=== PATIENT | male | born 1985 | race Caucasian/White ===

== ENCOUNTER 2019-03-09 23:38 | Inpatient (IN) ==
[2019-03-09] MEDS ORDERED: LORazepam 1 MG/2 ML VIAL IV STA (23:57)
[2019-03-09] MEDS ORDERED: SODIUM CHLORIDE 0.9% 1000ML 1,000 ML IV ONE (23:57)
[2019-03-10 00:19] LABS: Basophils # (auto) 0.05 K/uL (0-0.2); Basophils % (auto) 0.7 %; Eosinophils # (auto) 0.28 K/uL (0-0.5); Eosinophils % (auto) 3.7 %; Hematocrit (blood only) 48.1 % (42-52); Hemoglobin 17.5 g/dL (14.0-18.0); Immature Granulocytes # (auto) 0.01 K/uL (0.00-0.02); Immature Granulocytes % (auto) 0.1 %; Lymphocytes # (auto) 1.46 K/uL (1.2-3.4); Lymphocytes % (auto) 19.3 %; Mean Corpuscular Hemoglobin 32.8 pg (25-34); Mean Corpuscular Hgb Conc 36.4 g/dL (32-36); Mean Corpuscular Volume 90.2 fL (80-100); Mean Platelet Volume 9.3 fL (7.4-10.4); Monocytes # (auto) 0.58 K/uL (0.11-0.59); Monocytes % (auto) 7.7 %; Neutrophils % (auto) 68.5 %; Platelet Count 243 K/uL (130-400); RDW Coefficient of Variation 12.1 % (11.5-14.5); RDW Standard Deviation 40.1 fL (36.4-46.3); Red Blood Count 5.33 M/uL (4.7-6.1); White Blood Count 7.58 K/uL (4.8-10.8)
[2019-03-10 00:32] LABS: Appearance Urine Clear (Clear); Bacteria Urine Automated Negative (Negative); Blood Urine Negative (Negative); Color Urine Dark Yellow; Glucose Urine UA Negative (Negative); Ketones Urine 1+ (Negative); Leukocyte Esterase Urine Negative (Negative); Nitrite Urine Negative (Negative); Protein Urine Trace (Negative); RBC Urine Automated 0-4 /hpf (0-4); Specific Gravity Urine 1.033 (1.000-1.030); Urobilinogen Urine Negative (Negative)
[2019-03-10 00:37] LABS: Bilirubin Urine Negative (Negative); Ictotest Urine Negative (Negative)
[2019-03-10 00:41] LABS: Albumin Level 4.3 gm/dl (3.4-5.0); BUN Creatinine Ratio 14.8 (10-20); Calcium 9.4 mg/dl (8.5-10.1); Creatinine Clr Calc Pharmacy 73.7 ml/min; Est GFR (African American) 76.9; Est GFR (Non-African American) 66.3; Potassium 3.2 mmol/L (3.5-5.1)
[2019-03-10 00:47] LABS: Calcium Oxalate Crystals Urine Present (None Prsent)
[2019-03-10 00:51] LABS: Acetaminophen < 2 ug/ml (10-30); Salicylate < 1.7 mg/dl (2.8-20)
[2019-03-10 00:52] LABS: Albumin Globulin Ratio 1.1 (0.9-2); Bilirubin,Total 1.1 mg/dl (0.2-1); Globulin 3.8 gm/dl (2.5-4.0); Thyroid Stimulating Hormone 0.998 uIu/ml (0.300-4.500); Total Protein 8.1 gm/dl (6.4-8.2)
[2019-03-10 01:01] LABS: Amphetamines+Metham, Urine Pos (Neg); Barbiturates, Urine Neg (Neg); Benzodiazepine, Urine Neg (Neg); Cocaine, Urine Neg (Neg); MDMA (Ecstacy), Urine Pos (Neg); Methadone, Urine Neg (Neg); Opiate, Urine Neg (Neg); Phencyclidine, Urine Neg (Neg)
--- NOTE | 2019-03-10 03:29 | Emergency Department Note ---
Entered by Erma Chatman acting as a scribe for ED Provider Note Name: Nathaniel Perkins Age: 33 M Arrives Via: Personal transport from friend Informant: CC: detox request HPI: 33 year old male arrives for a detoxication request for his use of meth for the past two weeks. The patient states that he has been using meth for the past 8 days straight and has only been able to sleep for four hours during this time- span. The patient states reports that he normally smokes meth but has injected it once. The patient confirms that today he drank some beers and smoked marijuana. The patient denies shortness of breath, chest pain, leg swelling, neck pain or recent falls. The patient confirms that he lives with his grandmother and she is aware of his drug use. The patient confirms that he was here a couple of weeks ago for depression and states that this is the cause of his current drug use. The patient denies that anyone is trying to hurt him or that he wants to hurt himself. ROS: See above HPI for pertinent positives & negatives. A total of 10 systems reviewed and were otherwise negative. Past Medical History: Hypoxia, narcotic overdose, opiate withdrawal, tachycardia, unresponsive as well as others that are listed below Past Surgical History: Appendectomy Family History: Depression and anxiety Social History: Smokes cigarettes and chews tobacco Home Medications: Epinephrine Allergies Bee venom protein and Fish containing products Physical: Vitals: BP 144/93, P 112, R 20, O2 97% on RA , Temp 36.3 Exam: GENERAL: Patient is mildly agitated appears to be under the influence of meth. Mildly dehydrated. Anxious. Frequently checking phone me. EYES: No scleral icterus, unremarkable pupils. ENT: Mucous membranes moist, no nasal congestion. NECK: No masses appreciated, no meningismus, trachea is midline. RESPIRATORY: No dyspnea. Clear to auscultation and equal bilaterally. No wheeze, no rhonchi. CARDIOVASCULAR: Tachycardic rate and rhythm. No murmurs, rubs, gallops appreciated. GASTROINTESTINAL: Abdomen soft, non-tender, no peritonitis. Bowel sounds positive. No masses appreciated. BACK: No midline tenderness, no CVA tenderness EXTREMITIES: Normal motion all extremities, no cyanosis, no edema. NEUROLOGIC: Alert and oriented, no acute motor or sensory deficits, no focal weakness, cranial nerves grossly intact. PSYCH: Admits depression and denies suicidal ideation. Admits to meth use. SKIN: No rash, no jaundice, no diaphoresis. ED Course: Prior Medical Record, Triage/Nursing Notes, Medications, Allergies reviewed by Me Vital Signs: reviewed and remarkable for tachy, HTN Labs: Reviewed and remarkable for +meth in UA Interventions: saline lock, nss bolus, ativan 1 mg IV Blood pressure: Elevated - Zebulon to be Situation. Course: 0001: Past medical records reviewed. The patient was evaluated in room A10. A complete history and physical exam was performed. 0059: I reassessed the patient who is feeling more calm. Multiple rechecks throughout night. Mental health evaluated him and note patient admits suicidal ideation and plans. Disposition: Signed out to Dr Floyd pending placement on 201 basis Differentials: mood disorder, infection, hypoglycemia, electrolyte abnormalities, cardiac sources, intracerebral event, toxicologic, neurologic, as well as others were entertained. Medical Decision Makin yr old male with history of depression, previous suicide attempt and recent meth use arrived requesting rehab. After calming down and fluids patient met with case management as medically clear. At this time he is admitting suicidal ideation and worsening depression. He is willing admission on 201 voluntary basis. Signed out to Dr Floyd pending placement. Impression: Depression with suicidal ideation Methamphetamine Abuse The scribe's documentation has been prepared under my direction and personally reviewed by me in its entirety. I confirm that the note above accurately reflects all work, treatment, procedures, and medical decision making performed by me. Ross Torres MD Impression & Plan Depression with suicidal ideation, Methamphetamine abuse Past Med/Surg History Medical History Abdominal pain (Acute) Agitation (Acute) Aspiration pneumonia (Acute) Folliculitis (Acute 03/29/14) Hypoxia (Acute 03/29/14) Narcotic overdose (Acute) Nausea (Acute) Opiate withdrawal (Acute) Opioid withdrawal (Acute 01/26/13) Tachycardia (Acute) Unresponsive (Acute 03/29/14) Family History Other No pertinent family history in first degree relatives Social History Preferred Language: Greek Communication Ability: Effective Cook Night Required: No Beliefs That Will Affect Care: None Feels Safe at Home: Yes Smoking Status: Current every day smoker Tobacco Type: cigarettes ; Results & Data Vital Signs Vital Signs - 24 hr 03/09/19 23:44 03/10/19 01:53 Temperature 36.3 C L Temperature Source Oral Pulse Rate 112 H Pulse Rate [Apical] 95 H Respiratory Rate 20 18 Blood Pressure 144/93 H Blood Pressure [Left Arm] 137/88 Blood Pressure Mean 110 Blood Pressure Mean [Left Arm] 104 Blood Pressure Position Sitting Pulse Oximetry 97 97 Oxygen Delivery Method Room Air Room Air Sepsis Recent Fever Within 48 Hours No Sepsis New/Unexplained Change in Mental Status No Sepsis Action Taken by Nursing No Action Required Laboratory Data Result diagrams: 03/10/19 00:05 03/10/19 00:05 Lab Results 03/10/19 03/10/19 03/10/19 Range/Units 00:05 00:05 00:05 WBC 7.58 (4.8-10.8) K/uL RBC 5.33 (4.7-6.1) M/uL Hgb 17.5 (14.0-18.0) g/dL Hct 48.1 (42-52) % MCV 90.2 (80-100) fL MCH 32.8 (25-34) pg MCHC 36.4 H (32-36) g/dL RDW Std Deviation 40.1 (36.4-46.3) fL RDW Coeff of Gita 12.1 (11.5-14.5) % Plt Count 243 (130-400) K/uL MPV 9.3 (7.4-10.4) fL Immature Gran % (Auto) 0.1 % Neut % (Auto) 68.5 % Lymph % (Auto) 19.3 % [place] % (Auto) 7.7 % Eos % (Auto) 3.7 % Baso % (Auto) 0.7 % Immature Gran # (Auto) 0.01 (0.00-0.02) K/uL Neut # (Auto) 5.20 (1.4-6.5) K/uL Lymph # (Auto) 1.46 (1.2-3.4) K/uL [place] # (Auto) 0.58 (0.11-0.59) K/uL Eos # (Auto) 0.28 (0-0.5) K/uL Baso # (Auto) 0.05 (0-0.2) K/uL Sodium 140 (136-145) mmol/L Potassium 3.2 L (3.5-5.1) mmol/L Chloride 102 (98-107) mmol/L Carbon Dioxide 29 (21-32) mmol/L Anion Gap 8.0 (3-11) BUN 20 H (7-18) mg/dl Creatinine 1.37 (0.6-1.4) mg/dl Est Cr Clr Drug Dosing 73.7 ml/min Est GFR ( Amer) 76.9 Est GFR (Non-Af Amer) 66.3 BUN/Creatinine Ratio 14.8 (10-20) Glucose 99 (70-99) mg/dl Calcium 9.4 (8.5-10.1) mg/dl Total Bilirubin 1.1 H (0.2-1) mg/dl AST 14 L (15-37) U/L ALT 17 (12-78) U/L Alkaline Phosphatase 67 (45-117) U/L Total Protein 8.1 (6.4-8.2) gm/dl Albumin 4.3 (3.4-5.0) gm/dl Globulin 3.8 (2.5-4.0) gm/dl Albumin/Globulin Ratio 1.1 (0.9-2) TSH 0.998 (0.300-4.500) uIu/ml Urine Color Urine Appearance (Clear) Urine pH (4.5-7.5) Ur Specific [place] (1.000-1.030) Urine Protein (Negative) Urine Glucose (UA) (Negative) Urine Ketones (Negative) Urine Blood (Negative) Urine Nitrite (Negative) Urine Bilirubin (Negative) Urine Urobilinogen (Negative) Ur Leukocyte Esterase (Negative) Urine WBC (Auto) (0-5) /hpf Urine RBC (Auto) (0-4) /hpf U Hyaline Cast (Auto) (0-5) /lpf U Epithel Cells (Auto) (0-5) /lpf Urine Bacteria (Auto) (Negative) Urine Crystals Calcium Oxalate Crystal (None Prsent) Nasal Screen MRSA (PCR) (Negative) Salicylates < 1.7 L (2.8-20) mg/dl Urine Opiates Screen (Neg) Ur Methadone, Qual (Neg) Acetaminophen < 2 L (10-30) ug/ml Urine Barbiturates (Neg) Ur Phencyclidine (PCP) (Neg) U Amphetamin/Meth Scrn (Neg) MDMA (Ecstasy) Screen (Neg) U Benzodiazepines Scrn (Neg) Ur Cocaine Metabolite (Neg) U Marijuana (THC) Screen (Neg) Ethyl Alcohol mg/dL (0-3) mg/dl 03/10/19 03/10/19 03/10/19 Range/Units 00:06 00:10 00:10 WBC (4.8-10.8) K/uL RBC (4.7-6.1) M/uL Hgb (14.0-18.0) g/dL Hct (42-52) % MCV (80-100) fL MCH (25-34) pg MCHC (32-36) g/dL RDW Std Deviation (36.4-46.3) fL RDW Coeff of Gita (11.5-14.5) % Plt Count (130-400) K/uL MPV (7.4-10.4) fL Immature Gran % (Auto) % Neut % (Auto) % Lymph % (Auto) % [place] % (Auto) % Eos % (Auto) % Baso % (Auto) % Immature Gran # (Auto) (0.00-0.02) K/uL Neut # (Auto) (1.4-6.5) K/uL Lymph # (Auto) (1.2-3.4) K/uL [place] # (Auto) (0.11-0.59) K/uL Eos # (Auto) (0-0.5) K/uL Baso # (Auto) (0-0.2) K/uL Sodium (136-145) mmol/L Potassium (3.5-5.1) mmol/L Chloride (98-107) mmol/L Carbon Dioxide (21-32) mmol/L Anion Gap (3-11) BUN (7-18) mg/dl Creatinine (0.6-1.4) mg/dl Est Cr Clr Drug Dosing ml/min Est GFR ( Amer) Est GFR (Non-Af Amer) BUN/Creatinine Ratio (10-20) Glucose (70-99) mg/dl Calcium (8.5-10.1) mg/dl Total Bilirubin (0.2-1) mg/dl AST (15-37) U/L ALT (12-78) U/L Alkaline Phosphatase (45-117) U/L Total Protein (6.4-8.2) gm/dl Albumin (3.4-5.0) gm/dl Globulin (2.5-4.0) gm/dl Albumin/Globulin Ratio (0.9-2) TSH (0.300-4.500) uIu/ml Urine Color Dark Yellow Urine Appearance Clear (Clear) Urine pH 5.0 (4.5-7.5) Ur Specific [place] 1.033 H (1.000-1.030) Urine Protein Trace H (Negative) Urine Glucose (UA) Negative (Negative) Urine Ketones 1+ H (Negative) Urine Blood Negative (Negative) Urine Nitrite Negative (Negative) Urine Bilirubin Negative (Negative) Urine Urobilinogen Negative (Negative) Ur Leukocyte Esterase Negative (Negative) Urine WBC (Auto) 1-5 (0-5) /hpf Urine RBC (Auto) 0-4 (0-4) /hpf U Hyaline Cast (Auto) 1-5 (0-5) /lpf U Epithel Cells (Auto) 5-10 H (0-5) /lpf Urine Bacteria (Auto) Negative (Negative) Urine Crystals Not Reportable Calcium Oxalate Crystal Present A (None Prsent) Nasal Screen MRSA (PCR) (Negative) Salicylates (2.8-20) mg/dl Urine Opiates Screen Neg (Neg) Ur Methadone, Qual Neg (Neg) Acetaminophen (10-30) ug/ml Urine Barbiturates Neg (Neg) Ur Phencyclidine (PCP) Neg (Neg) U Amphetamin/Meth Scrn Pos H (Neg) MDMA (Ecstasy) Screen Pos H (Neg) U Benzodiazepines Scrn Neg (Neg) Ur Cocaine Metabolite Neg (Neg) U Marijuana (THC) Screen Pos H (Neg) Ethyl Alcohol mg/dL < 3.0 (0-3) mg/dl 03/10/19 Range/Units 05:41 WBC (4.8-10.8) K/uL RBC (4.7-6.1) M/uL Hgb (14.0-18.0) g/dL Hct (42-52) % MCV (80-100) fL MCH (25-34) pg MCHC (32-36) g/dL RDW Std Deviation (36.4-46.3) fL RDW Coeff of Gita (11.5-14.5) % Plt Count (130-400) K/uL MPV (7.4-10.4) fL Immature Gran % (Auto) % Neut % (Auto) % Lymph % (Auto) % [place] % (Auto) % Eos % (Auto) % Baso % (Auto) % Immature Gran # (Auto) (0.00-0.02) K/uL Neut # (Auto) (1.4-6.5) K/uL Lymph # (Auto) (1.2-3.4) K/uL [place] # (Auto) (0.11-0.59) K/uL Eos # (Auto) (0-0.5) K/uL Baso # (Auto) (0-0.2) K/uL Sodium (136-145) mmol/L Potassium (3.5-5.1) mmol/L Chloride (98-107) mmol/L Carbon Dioxide (21-32) mmol/L Anion Gap (3-11) BUN (7-18) mg/dl Creatinine (0.6-1.4) mg/dl Est Cr Clr Drug Dosing ml/min Est GFR ( Amer) Est GFR (Non-Af Amer) BUN/Creatinine Ratio (10-20) Glucose (70-99) mg/dl Calcium (8.5-10.1) mg/dl Total Bilirubin (0.2-1) mg/dl AST (15-37) U/L ALT (12-78) U/L Alkaline Phosphatase (45-117) U/L Total Protein (6.4-8.2) gm/dl Albumin (3.4-5.0) gm/dl Globulin (2.5-4.0) gm/dl Albumin/Globulin Ratio (0.9-2) TSH (0.300-4.500) uIu/ml Urine Color Urine Appearance (Clear) Urine pH (4.5-7.5) Ur Specific [place] (1.000-1.030) Urine Protein (Negative) Urine Glucose (UA) (Negative) Urine Ketones (Negative) Urine Blood (Negative) Urine Nitrite (Negative) Urine Bilirubin (Negative) Urine Urobilinogen (Negative) Ur Leukocyte Esterase (Negative) Urine WBC (Auto) (0-5) /hpf Urine RBC (Auto) (0-4) /hpf U Hyaline Cast (Auto) (0-5) /lpf U Epithel Cells (Auto) (0-5) /lpf Urine Bacteria (Auto) (Negative) Urine Crystals Calcium Oxalate Crystal (None Prsent) Nasal Screen MRSA (PCR) Negative (Negative) Salicylates (2.8-20) mg/dl Urine Opiates Screen (Neg) Ur Methadone, Qual (Neg) Acetaminophen (10-30) ug/ml Urine Barbiturates (Neg) Ur Phencyclidine (PCP) (Neg) U Amphetamin/Meth Scrn (Neg) MDMA (Ecstasy) Screen (Neg) U Benzodiazepines Scrn (Neg) Ur Cocaine Metabolite (Neg) U Marijuana (THC) Screen (Neg) Ethyl Alcohol mg/dL (0-3) mg/dl Administered Medications Fluoxetine HCl (Prozac) 20 mg PO QAM DIANE Stop: 04/09/19 10:14 Last Admin: 03/10/19 12:35 Dose: 20 mg Documented by: [id number] Mirtazapine (Remeron) 30 mg PO HS DIANE Stop: 04/09/19 21:59 Last Admin: 03/10/19 22:12 Dose: 30 mg Documented by: [id number] Nicotine (Nicoderm Cq) 14 mg TD QAM DIANE Stop: 04/09/19 10:14 Last Admin: 03/10/19 12:35 Dose: 14 mg Documented by: [id number] Discontinued Medications Sodium Chloride (Nss 1000ml) 1,000 mls @ 999 mls/hr IV .[id number] ONE Stop: 03/10/19 00:57 Last Infusion: 03/10/19 02:34 Dose: 0 mls/hr Documented by: [id number] Admin: 03/10/19 00:26 Dose: 999 mls/hr Documented by: [id number] Lorazepam (Ativan) 1 mg in 2 mls @ 2 mls/min IV NOW STA Stop: 03/09/19 23:58 Last Admin: 03/10/19 00:26 Dose: 2 mls/min Documented by: [id number] Discharge Plan Visit Data *Final* Discharge Date/Time: 03/10/19 07:34 Chief Complaint: Detox Request Stated Complaint: DETOX ED Provider: Ross Torres Discharge Problem: Depression with suicidal ideation, Methamphetamine abuse Patient Disposition: Admitted As Inpatient Discharge Instructions Interventions: ED Discharge Assessment Last Done: 03/10/19 07:34 The scribe's documentation has been prepared under my direction and personally reviewed by me in its entirety. I confirm that the note above accurately ref lects all work, treatment, procedures, and medical decision making performed by me.
--- NOTE | 2019-03-10 07:02 | Emergency Department Note ---
ED Visit Note 0700: Signout from Dr. Torres. 33-year-old male with suicidal ideation. History of methamphetamine abuse. Awaiting psychiatric placement. 0945: Vital signs stable. Patient was admitted for inpatient psychiatric treatment. .
[2019-03-10] MEDS ORDERED: BISMUTH SUBSALICYLATE PER ML OMNICELL CHARGE PO PRN (10:01)
[2019-03-10] MEDS ORDERED: ACETAMINOPHEN 325 MG TAB PO PRN (10:01)
[2019-03-10] MEDS ORDERED: ALUMINUM/MAGNESIUM SUSP 30 ML UDC PO PRN (10:01)
[2019-03-10] MEDS ORDERED: MAGNESIUM HYDROXIDE SUSP 30 ML UDC PO PRN (10:01)
[2019-03-10] MEDS ORDERED: SODIUM CHLORIDE 0.65% NA SOLN 45 ML (OCEAN) PRN (10:01)
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
[2019-03-10] MEDS: FLUOXETINE HCL 20 MG CAP PO SCH (12:35)
[2019-03-10] MEDS: NICOTINE 14 MG/24 HR PATCH TD SCH (12:35)
[2019-03-10] MEDS: MIRTAZAPINE TAB 15 MG TAB PO SCH (22:12)
[2019-03-11 08:01] LABS: Albumin Level 3.1 gm/dl (3.4-5.0); Calcium 8.6 mg/dl (8.5-10.1); Creatinine Clr Calc Pharmacy 103.9 ml/min; Est GFR (African American) 118.2; Potassium 3.3 mmol/L (3.5-5.1)
[2019-03-11 08:04] LABS: Albumin Globulin Ratio 1.1 (0.9-2); Bilirubin,Total 0.4 mg/dl (0.2-1); Globulin 2.9 gm/dl (2.5-4.0)
[2019-03-11] MEDS: FLUOXETINE HCL 20 MG CAP PO SCH (09:52)
[2019-03-11] MEDS: NICOTINE 14 MG/24 HR PATCH TD SCH (09:55)
[2019-03-11] MEDS: MODAFINIL 100 MG TAB PO SCH (10:11)
--- NOTE | 2019-03-11 19:09 | Psychiatric Progress Note ---
Date of Service March 11, 2019 Impression / Recommendations Impression This 33-year-old man has a complex history that includes chemical dependency, dating back to latency age, recurrent episodes of depression that appear to be closely linked to his abuse of, or withdrawal from, mood altering chemical substances, a history of a number of intentional suicide attempts by overdose, several psychiatric hospitalizations, multiple residential rehabilitation programs, and a history of multiple incarcerations largely pursuant to drugs. He tells us that he is having thoughts of overdosing on methamphetamine and heroin, and notes that, in the past, he has acted on these thoughts. However, it would seem that perhaps the patient's primary goal at this point is to complete detoxification, get clean, and be in a better position to assist his grandmother and his behaviorally disturbed 15-year-old granddaughter, which is the reason he returned to [facility] from [place] last summer. In the month prior to the admission the patient says that he has been smoking methamphetamine on a daily basis and quantities that he says are too much and too random to quantify. However, he claims to have achieved 3-1/2 years of abstinence while a resident in a residential chemical dependency rehabilitation program in [place], followed by a stent has an employee of the same rehabilitation program. Currently, the patient says that he is experiencing symptoms of methamphetamine withdrawal including cognitive clouding, depression, and cravings. The goal will be to assist the patient through detoxification from methamphetamine, assessing patient for an underlying mood disorder, and referring to a residential rehabilitation program for further rehab. Mirtazapine and fluoxetine was started on 03/10. referring (1) Depression with suicidal ideation: 03/10/19 -Patient reports that he is depressed and has been experiencing thoughts of suicide within the context of the abuse of methamphetamine and shame associated with the fact that he has relapsed following a substantial period of abstinence. There is a strong family history reported by the patient of mood disorders, primarily depression, but also bipolar disorder. The patient describes recurrent depressive episodes as well as periods during which she is experiencing racing thoughts that, "so fast I cannot keep up with them." However, the patient's reports indicate that these mood symptoms occur exclusively within the context of his abuse of mood altering chemical substances. He reports that while abstinent from chemical substances during rehabilitation and employment in a rehabilitation center in [place] (more than 3 years) his mood symptoms resolved fairly quickly and he remained free of depression and anxiety during that period. -We will add Prozac 20 mg a day and mirtazapine 30 mg a day to the patient's medication regimen, both to assist with mood and to help the patient while he experiences the effects of methamphetamine cessation. 03/11 continue as above monitoring for potential s/e to medications (2) Methamphetamine abuse: 03/10/19 -The patient is currently showing early symptoms of methamphetamine withdrawal. I have added a brief course of modafinil 100 mg daily to assist the patient over the next 72 hours. The plan is not to continue this medication, particularly given the patient's history of chemical substance misuse. -He reports that during withdrawal from methamphetamines he typically sleeps very poorly and notes that he has only slept "may be for 5 hours" in the past several days. I have added mirtazapine 30 mg daily, both for depression and for insomnia, at least while he continues to experience the effects of methamphetamine cessation. We have also added Prozac 20 mg a day. He notes that this medication has helped manage his anxiety during withdrawal and subsequent to withdrawal. 03/11/19 - referral to [facility] substance rehab Inventory Assets Strengths: Motivated to recovery. 3-1/2 years of abstinence from drugs (recently). Supportive grandmother. Reports a positive work history. Needs: Sustained abstinence from drugs of abuse. Resolution of suicidal thoughts. Improved daily structure. Risk Factors Assessment Male: Yes : Yes Do You Have Access To A Gun?: No Health Problems: No Mental Health Diagnoses: Yes Substance Use Disorders: Yes Previous Attempt: Yes Previous Attempt; Highly Lethal: No Previous Attempt; Planned: No Previous Attempt; Didn't Tell Anyone: Yes Previous Psychiatric Hospitalization: Yes Hopelessness: No Smoker: Yes Protective Factors Assessment Pentecostalism Beliefs: No : Yes (Technically, the patient is , but has been from his for at least 4 years.) Responsible for Young Children: Yes Employed: No (Seeking employment) Stable Relationships: Yes Supportive Family: Yes Good Rapport with Provider: No Absence of Any Risk Factors Above: No Interval History Chief Complaint "[]". Review of Systems Sleep Information Total Hours of Sleep: 6.75 Meal Information Percent Meal Consumed - Breakfast: 0 Percent Meal Consumed - Lunch: 0 Percent Meal Consumed - Dinner: 100 Subjective Subjective Patient was seen & assessed and interval progress reviewed with nursing and social work.Patient slept away most of the day. He reports his mood is blah he denied eating anything today he says he is willing to eat dinner but does not feel hungry nor seeming all that food focused currently. He denied any active suicidal ideation but is preferring just to shut down and climb into a hole and not deal with life He is interested in inpatient rehab. His main stressor is his teenage daughter and concerns and worry about her and finding that her current difficulties is reminding him of himself as an adolescent adding to his emotional distress. He is conflicted about what to do next especially in terms of choices in his life since he feels that he was doing so much better before he presented himself to come back to [place] thought to be of assistance with his daughter. He shared how He took fluoxetine once previously in the past and how he stopped taking it after a couple months due to feeling uncomfortable while on it however his med compliance was pretty poor during that time and he is open to retrying it. He reported that he tolerated mirtazapine well in the past and that he took Celexa with it when he took it previously. When inquired if he would prefer to switch to Celexa from fluoxetine he indicated that he would prefer to stay on fluoxetine at this time. He denied manic symptoms and he denied homicidal ideation. It is possible that his oversleeping today could be related to a side effect of starting the mirtazapine however he is also likely withdrawing from methamphetamine binge and given his past history of seem to tolerate mirtazapine well we will we are aiming to continue this trial for now Physical Exam Psychiatric Orientation: alert and oriented x 3 Apperance: + disheveled Eye Contact: + fair eye contact Affect: + blunted affect blah mood Thought Process: linear/logical thought process Thought Content: reality based without delusions Suicidal Thoughts: denies suicidal thoughts (but does not want to engage or deal with life) Homicidal Thoughts: denies homicidal thoughts Hallucinations: + auditory hallucinations and + visual hallucinations Cognition: recent memory grossly intact, remote memory grossly intact and language grossly intact Estimated Intelligence: average estimated intelligence Insight: + fair insight (The patient is clearly committed to achieving abstinence. He also seems to understand the role that his behaviors have had in his multiple psychosocial problems.) Judgement: + limited judgement Vital Signs (Past 24 Hours) Last Vital Signs Temp 36.4 C L 03/11/19 06:00 Pulse 81 03/11/19 06:49 Resp 19 03/11/19 06:00 BP 116/72 03/11/19 06:49 Pulse Ox 99 03/10/19 06:47 Results & Data Laboratory Results Laboratory Results - last 24 hr 03/11/19 07:06 Sodium 143 Potassium 3.3 L Chloride 109 H Carbon Dioxide 28 Anion Gap 6.0 BUN 14 Creatinine 0.96 D Est Cr Clr Drug Dosing 103.9 Est GFR ( Amer) 118.2 Est GFR (Non-Af Amer) 102.0 BUN/Creatinine Ratio 15.0 Glucose 111 H Calcium 8.6 Total Bilirubin 0.4 D AST 9 L ALT 13 Alkaline Phosphatase 51 Total Protein 6.0 L D Albumin 3.1 L Globulin 2.9 Albumin/Globulin Ratio 1.1 Current Inpatient Medications Current Inpatient Medications: Current Inpatient Medications Acetaminophen (Tylenol) 650 mg PO Q4H PRN PRN Reason: Headache or Minor Fever Stop: 04/09/19 10:00 Al Hydrox/Mg Hydrox/Simethicone (Maalox) 30 ml PO Q4H PRN PRN Reason: GI Upset Stop: 04/09/19 10:00 Bismuth Subsalicylate (Kaopectate) 15 ml PO PRN PRN PRN Reason: Loose Stool Stop: 04/09/19 10:00 Fluoxetine HCl (Prozac) 20 mg PO QAM [facility] Stop: 04/09/19 10:14 Last Admin: 03/11/19 09:52 Dose: 20 mg Documented by: Hydroxyzine HCl (Vistaril) 50 mg PO HSZ PRN PRN Reason: insomnia Stop: 04/09/19 10:22 Hydroxyzine HCl (Vistaril) 25 mg PO Q4H PRN PRN Reason: Anxiety Stop: 04/09/19 10:00 Magnesium Hydroxide (Milk Of Magnesia) 30 ml PO DAILY PRN PRN Reason: Constipation Stop: 04/09/19 10:00 Mirtazapine (Remeron) 30 mg PO HS [facility] Stop: 04/09/19 21:59 Last Admin: 03/10/19 22:12 Dose: 30 mg Documented by: Miscellaneous (Remove Nicoderm Patch) 1 ea N/A DAILY@0859 [facility] Stop: 04/10/19 08:58 Last Admin: 03/11/19 09:55 Dose: Not Given Documented by: Modafinil (Provigil) [facility] Stop: 03/13/19 08:59 Last Admin: 03/11/19 10:11 Dose: 100 mg Documented by: Nicotine (Nicoderm Cq) 14 [facility] Stop: 04/09/19 10:14 Last Admin: 03/11/19 09:55 Dose: Not Given Documented by: Nicotine Polacrilex (Nicorette 2mg) 1 piece MT PRN PRN PRN Reason: Nicotine Withdrawal Stop: 04/09/19 10:00 Sodium Chloride ([place] Nasal) 1 - 2 sprays NA PRN PRN PRN Reason: Nasal Dryness/Congestion Stop: 04/09/19 10:00 Mental Health & Subst Abuse Tx Therapist Name of Therapist: None Vascular Surgeon Name of Vascular Surgeon: None
[2019-03-11] MEDS: MIRTAZAPINE TAB 15 MG TAB PO SCH (20:41)
[2019-03-12] MEDS: FLUOXETINE HCL 20 MG CAP PO SCH (08:57)
[2019-03-12] MEDS: NICOTINE 14 MG/24 HR PATCH TD SCH (09:02)
[2019-03-12] MEDS: MODAFINIL 100 MG TAB PO SCH (09:03)
--- NOTE | 2019-03-12 15:06 | Psychiatric Progress Note ---
Date of Service March 12, 2019 Impression / Recommendations Impression This 33-year-old man has a complex history that includes chemical dependency, dating back to latency age, recurrent episodes of depression that appear to be closely linked to his abuse of, or withdrawal from, mood altering chemical substances, a history of a number of intentional suicide attempts by overdose, several psychiatric hospitalizations, multiple residential rehabilitation programs, and a history of multiple incarcerations largely pursuant to drugs. He tells us that he is having thoughts of overdosing on methamphetamine and heroin, and notes that, in the past, he has acted on these thoughts. However, it would seem that perhaps the patient's primary goal at this point is to complete detoxification, get clean, and be in a better position to assist his grandmother and his behaviorally disturbed 15-year-old granddaughter, which is the reason he returned to [facility] from [place] last summer. In the month prior to the admission the patient says that he has been smoking methamphetamine on a daily basis and quantities that he says are too much and too random to quantify. However, he claims to have achieved 3-1/2 years of abstinence while a resident in a residential chemical dependency rehabilitation program in [place], followed by a stent has an employee of the same rehabilitation program. Currently, the patient says that he is experiencing symptoms of methamphetamine withdrawal including cognitive clouding, depression, and cravings. The goal will be to assist the patient through detoxification from methamphetamine, assessing patient for an underlying mood disorder, and referring to a residential rehabilitation program for further rehab. Mirtazapine and fluoxetine was started on 03/10. pt still oversleeping and isolating and limited appetite (although states baseline is just to eat dinner only) (1) Depression with suicidal ideation: 03/10/19 -Patient reports that he is depressed and has been experiencing thoughts of suicide within the context of the abuse of methamphetamine and shame associated with the fact that he has relapsed following a substantial period of abstinence. There is a strong family history reported by the patient of mood disorders, primarily depression, but also bipolar disorder. The patient describes recurrent depressive episodes as well as periods during which she is experiencing racing thoughts that, "so fast I cannot keep up with them." However, the patient's reports indicate that these mood symptoms occur exclusively within the context of his abuse of mood altering chemical substances. He reports that while abstinent from chemical substances during rehabilitation and employment in a rehabilitation center in [place] (more than 3 years) his mood symptoms resolved fairly quickly and he remained free of depression and anxiety during that period. -We will add Prozac 20 mg a day and mirtazapine 30 mg a day to the patient's medication regimen, both to assist with mood and to help the patient while he experiences the effects of methamphetamine cessation. 03/11 continue as above monitoring for potential s/e to medications 03/12 - attempting to engage pt and encouraging attending groups and socialize with peers, (2) Methamphetamine abuse: 03/10/19 -The patient is currently showing early symptoms of methamphetamine withdrawal. I have added a brief course of modafinil 100 mg daily to assist the patient over the next 72 hours. The plan is not to continue this medication, particularly given the patient's history of chemical substance misuse. -He reports that during withdrawal from methamphetamines he typically sleeps very poorly and notes that he has only slept "may be for 5 hours" in the past several days. I have added mirtazapine 30 mg daily, both for depression and for insomnia, at least while he continues to experience the effects of methamphetamine cessation. We have also added Prozac 20 mg a day. He notes that this medication has helped manage his anxiety during withdrawal and subsequent to withdrawal. 03/11/19 - referral to in substance rehab Inventory Assets Strengths: Motivated to recovery. 3-1/2 years of abstinence from drugs (recently). Supportive grandmother. Reports a positive work history. Needs: Sustained abstinence from drugs of abuse. Resolution of suicidal thoughts. Improved daily structure. Risk Factors Assessment Male: Yes : Yes Do You Have Access To A Gun?: No Health Problems: No Mental Health Diagnoses: Yes Substance Use Disorders: Yes Previous Attempt: Yes Previous Attempt; Highly Lethal: No Previous Attempt; Planned: No Previous Attempt; Didn't Tell Anyone: Yes Previous Psychiatric Hospitalization: Yes Hopelessness: No Smoker: Yes Protective Factors Assessment Christian Beliefs: No : Yes (Technically, the patient is , but has been from his for at least 4 years.) Responsible for Young Children: Yes Employed: No (Seeking employment) Stable Relationships: Yes Supportive Family: Yes Good Rapport with Provider: No Absence of Any Risk Factors Above: No Interval History Chief Complaint "not feeling as blah". Review of Systems Sleep Information Total Hours of Sleep: 8.25 Meal Information Percent Meal Consumed - Breakfast: 0 Percent Meal Consumed - Lunch: 0 Percent Meal Consumed - Dinner: 100 Nutrition Comment: pt. states he would only like to eat dinner Subjective Subjective Patient was seen & assessed and interval progress reviewed with nursing and social work. pt continues to sleep the day away today. He did eat dinner last night and plans to eat dinner today but has not interest in eating prior to then today. isolating. states more chill today and less distress, mood not as blah. denied SI. is seeking inpt rehab about. denied feeling agitated. sleep intact at night limited interactions Physical Exam Psychiatric Orientation: alert and oriented x 3 Eye Contact: + poor eye contact Speech: normal rate/rhythm/volume of speech Affect: + constricted affect Mood: no anxious mood mood less blah Thought Process: linear/logical thought process Thought Content: reality based without delusions Suicidal Thoughts: denies suicidal thoughts (but does not want to engage or deal with life) Homicidal Thoughts: denies homicidal thoughts Hallucinations: no auditory hallucinations and no visual hallucinations Cognition: recent memory grossly intact, remote memory grossly intact and language grossly intact Estimated Intelligence: average estimated intelligence Insight: + fair insight (The patient is clearly committed to achieving abstinence. He also seems to understand the role that his behaviors have had in his multiple psychosocial problems.) Judgement: + fair judgement Vital Signs (Past 24 Hours) Last Vital Signs Temp 36.5 C 03/12/19 06:00 Pulse 79 03/12/19 06:29 Resp 16 03/12/19 06:00 BP 106/70 03/12/19 06:29 Pulse Ox 99 03/10/19 06:47 Results & Data Current Inpatient Medications Current Inpatient Medications: Current Inpatient Medications Acetaminophen (Tylenol) 650 mg PO Q4H PRN PRN Reason: Headache or Minor Fever Stop: 04/09/19 10:00 Al Hydrox/Mg Hydrox/Simethicone (Maalox) 30 ml PO Q4H PRN PRN Reason: GI Upset Stop: 04/09/19 10:00 Bismuth Subsalicylate (Kaopectate) 15 ml PO PRN PRN PRN Reason: Loose Stool Stop: 04/09/19 10:00 Fluoxetine HCl (Prozac) 20 mg PO QAM [facility] Stop: 04/09/19 10:14 Last Admin: 03/12/19 08:57 Dose: 20 mg Documented by: Hydroxyzine HCl (Vistaril) 50 mg PO HSZ PRN PRN Reason: insomnia Stop: 04/09/19 10:22 Hydroxyzine HCl (Vistaril) 25 mg PO Q4H PRN PRN Reason: Anxiety Stop: 04/09/19 10:00 Magnesium Hydroxide (Milk Of Magnesia) 30 ml PO DAILY PRN PRN Reason: Constipation Stop: 04/09/19 10:00 Mirtazapine (Remeron) 30 mg PO HS [facility] Stop: 04/09/19 21:59 Last Admin: 03/11/19 20:41 Dose: 30 mg Documented by: Miscellaneous (Remove Nicoderm Patch) 1 ea N/A DAILY@0859 [facility] Stop: 04/10/19 08:58 Last Admin: 03/12/19 09:01 Dose: Not Given Documented by: Modafinil (Provigil) 100 mg PO QAM [facility] Stop: 03/13/19 08:59 Last Admin: 03/12/19 09:03 Dose: Not Given Documented by: Nicotine (Nicoderm Cq) 14 mg TD QAM [facility] Stop: 04/09/19 10:14 Last Admin: 03/12/19 09:02 Dose: Not Given Documented by: Nicotine Polacrilex (Nicorette 2mg) 1 piece MT PRN PRN PRN Reason: Nicotine Withdrawal Stop: 04/09/19 10:00 Sodium Chloride ([place] Nasal) 1 - 2 sprays NA PRN PRN PRN Reason: Nasal Dryness/Congestion Stop: 04/09/19 10:00 Mental Health & Subst Abuse Tx Therapist Name of Therapist: None Athletic Equipment Custodian Name of Athletic Equipment Custodian: None
[2019-03-12] MEDS: NICOTINE POLACRILEX 2 MG GUM MT PRN (18:40)
[2019-03-12] MEDS: MIRTAZAPINE TAB 15 MG TAB PO SCH (21:03)
[2019-03-13] MEDS: FLUOXETINE HCL 20 MG CAP PO SCH (09:21)
[2019-03-13] MEDS: NICOTINE 14 MG/24 HR PATCH TD SCH (09:22)
[2019-03-13] MEDS: NICOTINE POLACRILEX 2 MG GUM MT PRN ×2 (09:23→21:08)
--- NOTE | 2019-03-13 10:46 | Psychiatric Progress Note ---
Date of Service March 13, 2019 Impression / Recommendations Impression This 33-year-old man has a complex history that includes chemical dependency, dating back to latency age, recurrent episodes of depression that appear to be closely linked to his abuse of, or withdrawal from, mood altering chemical substances, a history of a number of intentional suicide attempts by overdose, several psychiatric hospitalizations, multiple residential rehabilitation programs, and a history of multiple incarcerations largely pursuant to drugs. He tells us that he is having thoughts of overdosing on methamphetamine and heroin, and notes that, in the past, he has acted on these thoughts. However, it would seem that perhaps the patient's primary goal at this point is to complete detoxification, get clean, and be in a better position to assist his grandmother and his behaviorally disturbed 15-year-old daughter, which is the reason he returned to [facility] from [place] last summer. In the month prior to the admission the patient says that he has been smoking methamphetamine on a daily basis and quantities that he says are too much and too random to quantify. However, he claims to have achieved 3-1/2 years of abstinence while a resident in a residential chemical dependency rehabilitation program in [place], followed by a stent has an employee of the same rehabilitation program. Symptoms of methamphetamine withdrawal are improving - brief course of modafinil now discontinued. The goal will be to assist the patient through detoxification from methamphetamine, assessing patient for an underlying mood disorder, and referring to a residential rehabilitation progr for further rehab. Mirtazapine and fluoxetine was started on 03/10. Expectations of patient's voluntary admission were reviewed today, regarding the need to be working toward discharge planning and involving outpatient supports in treatment. Pt did sign an HERBERT for his grandmother, as well as the [facility] with desire to be referred for inpatient D&A rehabilitation. (1) Depression with suicidal ideation: 03/10/19 -Patient reports that he is depressed and has been experiencing thoughts of suicide within the context of the abuse of methamphetamine and shame associated with the fact that he has relapsed following a substantial period of abstinence. There is a strong family history reported by the patient of mood disorders, primarily depression, but also bipolar disorder. The patient describes recurrent depressive episodes as well as periods during which she is experiencing racing thoughts that, "so fast I cannot keep up with them." However, the patient's reports indicate that these mood symptoms occur exclusively within the context of his abuse of mood altering chemical substances. He reports that while abstinent from chemical substances during rehabilitation and employment in a rehabilitation center in [place] (more than 3 years) his mood symptoms resolved fairly quickly and he remained free of depression and anxiety during that period. -We will add Prozac 20 mg a day and mirtazapine 30 mg a day to the patient's medication regimen, both to assist with mood and to help the patient while he experiences the effects of methamphetamine cessation. 03/11 continue as above monitoring for potential s/e to medications 03/12 - attempting to engage pt and encouraging attending groups and socialize with peers, 03/13 - Continue as above - continuing strong encouragement for group participation - reminding patient that this is a component of desire for voluntary treatment - Inpatient D&A referral as below - Identify someone with whom to have a family meeting to discuss aftercare/discharge planning (2) Methamphetamine abuse: 03/10/19 -The patient is currently showing early symptoms of methamphetamine withdrawal. I have added a brief course of modafinil 100 mg daily to assist the patient over the next 72 hours. The plan is not to continue this medication, particularly given the patient's history of chemical substance misuse. -He reports that during withdrawal from methamphetamines he typically sleeps very poorly and notes that he has only slept "may be for 5 hours" in the past several days. I have added mirtazapine 30 mg daily, both for depression and for insomnia, at least while he continues to experience the effects of methamphetamine cessation. We have also added Prozac 20 mg a day. He notes that this medication has helped manage his anxiety during withdrawal and subsequent to withdrawal. 03/11/19 - referral to inpt substance rehab 03/13 - Pt verbalizing desire for inpatient D&A rehab - Signed [facility] to begin referral process Inventory Assets Strengths: Motivated to recovery. 3-1/2 years of abstinence from drugs (recently). Supportive grandmother. Reports a positive work history. Needs: Sustained abstinence from drugs of abuse. Resolution of suicidal thoughts. Improved daily structure. Risk Factors Assessment Male: Yes : Yes Do You Have Access To A Gun?: No Health Problems: No Mental Health Diagnoses: Yes Substance Use Disorders: Yes Previous Attempt: Yes Previous Attempt; Highly Lethal: No Previous Attempt; Planned: No Previous Attempt; Didn't Tell Anyone: Yes Previous Psychiatric Hospitalization: Yes Hopelessness: No Smoker: Yes Protective Factors Assessment Oriental Orthodox Beliefs: No : Yes (Technically, the patient is , but has been from his for at least 4 years.) Responsible for Young Children: Yes Employed: No (Seeking employment) Stable Relationships: Yes Supportive Family: Yes Good Rapport with Provider: No Absence of Any Risk Factors Above: No Interval History Identifying Information GAIL RODARTE is a 33-year-old M who currently lives locally with his grandmother and his 16-year-old daughter. He has an extensive history of drug abuse, including, but not limited to, methamphetamine and heroin, as well as a history of depression and a number of suicide attempts by overdose. He was admitted on 03/10/19 06:38 on a 201 voluntary agreement because of suicidal ideation with a plan to overdose on methamphetamine and heroin. Chief Complaint "I'm feeling pretty decent." Review of Systems Notes Constitutional: denied Cardiovascular: denied Respiratory: denied Gastrointestinal: denied Neurological: denied Psychiatric: denies symptoms other than stated above Total of at least 10 systems reviewed, pertinent positives as above and in HPI. Sleep Information Total Hours of Sleep: 8 Meal Information Percent Meal Consumed - Breakfast: 0 Percent Meal Consumed - Lunch: 0 Percent Meal Consumed - Dinner: 100 Nutrition Comment: pt. states he would only like to eat dinner Subjective Subjective Patient was seen & assessed and interval progress reviewed with treatment team. Staff report the patient has been largely isolative, attending few groups and not signing ROIs to pursue his next step of treatment. Pt was seen today to assess progress since admission. Pt was asked to meet with this provider in the office, as he has been in bed most of the morning. Pt states that he is feeling "pretty decent", and reporting restful sleep. He admits that he was sleep deprived prior to admission, due to "not sleeping for 8 or 9 days while I was using meth." He states that he is noticing improvement physically at this time. Pt was reminded of expectations for voluntary treatment, which includes being directed toward the next treatment step. Pt identifies that he is interested in pursuing inpatient D&A rehab, and did sign a release for the [facility] this morning. Pt was reminded that in rehab he will be expected to attend groups and participate in programming, and that we have the same expectations here. He was reminded of the general schedule for groups, and was encouraged to begin attending them regularly to demonstrate commitment to voluntary treatment. Pt was agreeable with this, stating that there is not a clear reason why he would be unable to meet these expectations. He denies continued SI, stating "I think that feeling was drug-induced and due to a lack of sleep." He denies other needs or concerns at this time. Physical Exam Psychiatric Orientation: alert, oriented x 3 and cooperative (and pleasant) Apperance: appropriately dressed (casually, in long-sleeve t-shirt and sweatpants), + disheveled (hair is unkempt, poor dentition) and appeared stated age Eye Contact: + fair eye contact Motor Behavior: steady gait and station and no abnormal motor movements Speech: normal rate/rhythm/volume of speech Affect: + blunted affect Mood: no depressed mood ("I'm feeling pretty decent" and "my mood has been pretty good.") Thought Process: goal directed thought process, clear/coherent thought process and thought association intact Thought Content: reality based without delusions; no hopelessness Suicidal Thoughts: denies suicidal thoughts and denies suicidal intent Homicidal Thoughts: denies homicidal thoughts Hallucinations: no auditory hallucinations and no visual hallucinations Cognition: attention grossly intact and language grossly intact Insight: + fair insight Judgement: + fair judgement Vital Signs (Past 24 Hours) Last Vital Signs Temp 36.5 C 03/13/19 06:00 Pulse 64 03/13/19 06:00 Resp 16 03/13/19 06:00 BP 103/70 03/13/19 06:00 Pulse Ox 99 03/10/19 06:47 Results & Data Current Inpatient Medications Current Inpatient Medications: Current Inpatient Medications Acetaminophen (Tylenol) 650 mg PO Q4H PRN PRN Reason: Headache or Minor Fever Stop: 04/09/19 10:00 Al Hydrox/Mg Hydrox/Simethicone (Maalox) 30 ml PO Q4H PRN PRN Reason: GI Upset Stop: 04/09/19 10:00 Bismuth Subsalicylate (Kaopectate) 15 ml PO PRN PRN PRN Reason: Loose Stool Stop: 04/09/19 10:00 Fluoxetine HCl (Prozac) 20 mg PO QAM DIANE Stop: 04/09/19 10:14 Last Admin: 03/13/19 09:21 Dose: 20 mg Documented by: Hydroxyzine HCl (Vistaril) 50 mg PO HSZ PRN PRN Reason: insomnia Stop: 04/09/19 10:22 Hydroxyzine HCl (Vistaril) 25 mg PO Q4H PRN PRN Reason: Anxiety Stop: 04/09/19 10:00 Magnesium Hydroxide (Milk Of Magnesia) 30 ml PO DAILY PRN PRN Reason: Constipation Stop: 04/09/19 10:00 Mirtazapine (Remeron) 30 mg PO HS DIANE Stop: 04/09/19 21:59 Last Admin: 03/12/19 21:03 Dose: 30 mg Documented by: Miscellaneous (Remove Nicoderm Patch) 1 ea N/A DAILY@0859 [facility] Stop: 04/10/19 08:58 Last Admin: 03/13/19 09:21 Dose: Not Given Documented by: Nicotine (Nicoderm Cq) 14 mg TD QAM [facility] Stop: 04/09/19 10:14 Last Admin: 03/13/19 09:22 Dose: Not Given Documented by: Nicotine Polacrilex (Nicorette 2mg) 1 piece MT PRN PRN PRN Reason: Nicotine Withdrawal Stop: 04/09/19 10:00 Last Admin: 03/13/19 09:23 Dose: 1 piece Documented by: Sodium Chloride ([place]prise Nasal) 1 - 2 sprays NA PRN PRN PRN Reason: Nasal Dryness/Congestion Stop: 04/09/19 10:00 Mental Health & Subst Abuse Tx Therapist Name of Therapist: None Sustainability Specialist Name of Sustainability Specialist: None
[2019-03-13] MEDS: MIRTAZAPINE TAB 15 MG TAB PO SCH (21:06)
--- NOTE | 2019-03-14 08:50 | Psychiatric Progress Note ---
Date of Service March 14, 2019 Impression / Recommendations Impression This 33-year-old man has a complex history that includes chemical dependency, dating back to latency age, recurrent episodes of depression that appear to be closely linked to his abuse of, or withdrawal from, mood altering chemical substances, a history of a number of intentional suicide attempts by overdose, several psychiatric hospitalizations, multiple residential rehabilitation programs, and a history of multiple incarcerations largely pursuant to drugs. He tells us that he is having thoughts of overdosing on methamphetamine and heroin, and notes that, in the past, he has acted on these thoughts. However, it would seem that perhaps the patient's primary goal at this point is to complete detoxification, get clean, and be in a better position to assist his grandmother and his behaviorally disturbed 15-year-old daughter, which is the reason he returned to [facility] from [place] last summer. In the month prior to the admission the patient says that he has been smoking methamphetamine on a daily basis and quantities that he says are too much and too random to quantify. However, he claims to have achieved 3-1/2 years of abstinence while a resident in a residential chemical dependency rehabilitation program in [place], followed by a stent has an employee of the same rehabilitation program. Symptoms of methamphetamine withdrawal are improving - brief course of modafinil now discontinued. The goal will be to assist the patient through detoxification from methamphetamine, assessing patient for an underlying mood disorder, and referring to a residential rehabilitation progr for further rehab. Mirtazapine and fluoxetine was started on 03/10. Expectations of patient's voluntary admission were reviewed today, regarding the need to be working toward discharge planning and involving outpatient supports in treatment. Pt did sign an HERBERT for his grandmother, as well as the [facility] with desire to be referred for inpatient D&A rehabilitation. There is significant concern for relapse if patient is discharged home prior to transfer to rehab - and concern is increased due to history of suicidal ideation resulting from episodes of substance abuse. (1) Depression with suicidal ideation: 03/10/19 -Patient reports that he is depressed and has been experiencing thoughts of suicide within the context of the abuse of methamphetamine and shame associated with the fact that he has relapsed following a substantial period of abstinence. There is a strong family history reported by the patient of mood disorders, primarily depression, but also bipolar disorder. The patient describes recurrent depressive episodes as well as periods during which she is experiencing racing thoughts that, "so fast I cannot keep up with them." How ever, the patient's reports indicate that these mood symptoms occur exclusively within the context of his abuse of mood altering chemical substances. He reports that while abstinent from chemical substances during rehabilitation and employment in a rehabilitation center in [place] (more than 3 years) his mood symptoms resolved fairly quickly and he remained free of depression and anxiety during that period. -We will add Prozac 20 mg a day and mirtazapine 30 mg a day to the patient's medication regimen, both to assist with mood and to help the patient while he experiences the effects of methamphetamine cessation. 03/11 continue as above monitoring for potential s/e to medications 03/12 - attempting to engage pt and encouraging attending groups and socialize with peers, 03/13 - Continue as above - continuing strong encouragement for group participation - reminding patient that this is a component of desire for voluntary treatment - Inpatient D&A referral as below - Identify someone with whom to have a family meeting to discuss aftercare/discharge planning 03/14 - Continue current medication regimen - declining further adjustments at this time - Met with computer help desk representative from [facility] today - exploring inpatient D&A rehab options - Encourage family meeting (2) Methamphetamine abuse: 03/10/19 -The patient is currently showing early symptoms of methamphetamine withdrawal. I have added a brief course of modafinil 100 mg daily to assist the patient over the next 72 hours. The plan is not to continue this medication, particularly given the patient's history of chemical substance misuse. -He reports that during withdrawal from methamphetamines he typically sleeps very poorly and notes that he has only slept "may be for 5 hours" in the past several days. I have added mirtazapine 30 mg daily, both for depression and for insomnia, at least while he continues to experience the effects of methamphetamine cessation. We have also added Prozac 20 mg a day. He notes that this medication has helped manage his anxiety during withdrawal and subsequent to withdrawal. 03/11/19 - referral to inpt substance rehab 03/13 - Pt verbalizing desire for inpatient D&A rehab - Signed [facility] to begin referral process Inventory Assets Strengths: Motivated to recovery. 3-1/2 years of abstinence from drugs (recently). Supportive grandmother. Reports a positive work history. Needs: Sustained abstinence from drugs of abuse. Resolution of suicidal thoughts. Improved daily structure. Risk Factors Assessment Male: Yes : Yes Do You Have Access To A Gun?: No Health Problems: No Mental Health Diagnoses: Yes Substance Use Disorders: Yes Previous Attempt: Yes Previous Attempt; Highly Lethal: No Previous Attempt; Planned: No Previous Attempt; Didn't Tell Anyone: Yes Previous Psychiatric Hospitalization: Yes Hopelessness: No Smoker: Yes Protective Factors Assessment Voodoo Beliefs: No : Yes (Technically, the patient is , but has been from his for at least 4 years.) Responsible for Young Children: Yes Employed: No (Seeking employment) Stable Relationships: Yes Supportive Family: Yes Good Rapport with Provider: No Absence of Any Risk Factors Above: No Interval History Identifying Information GAIL RODARTE is a 33-year-old M who currently lives locally with his grandmother and his 16-year-old daughter. He has an extensive history of drug abuse, including, but not limited to, methamphetamine and heroin, as well as a history of depression and a number of suicide attempts by overdose. He was admitted on 03/10/19 06:38 on a 201 voluntary agreement because of suicidal ideation with a plan to overdose on methamphetamine and heroin. Chief Complaint "I'm just getting antsy. I want to get moving." Review of Systems Notes Constitutional: denied Cardiovascular: denied Respiratory: denied Gastrointestinal: denied Neurological: denied Psychiatric: denies symptoms other than stated above Total of at least 10 systems reviewed, pertinent positives as above and in HPI. Sleep Information Total Hours of Sleep: 7.75 Meal Information Percent Meal Consumed - Breakfast: 0 Percent Meal Consumed - Lunch: 100 Percent Meal Consumed - Dinner: 100 Nutrition Comment: pt. states he would only like to eat dinner Subjective Subjective Patient was seen & assessed and interval progress reviewed with nursing and social work. Staff reports the patient continues to be largely isolative, but is now agreeable with referrals for inpatient D&A rehab. Pt was seen today to assess progress since admission. He states that he is feeling "antsy", stating he just "want to get moving." Pt states that he is getting anxious to continue his treatment, feeling restless about remaining on our unit. He was encouraged to increase participation in group programming, as at least a way to structure his time and provide variety of activity, but ideally as a resource to work on some helpful coping strategies. Pt states that he is scheduled to meet with a computer help desk representative from the [facility] today to discuss rehab, but is not sure that he will be willing to stay on our unit if he will be expected to stay for several more days. Pt admits that his mood has been "pretty good", and denies physical complaints. He denies SI, stating "I think it was just from not sleeping and having that slip-up." Pt denies other needs or concerns, and was again encouraged at the end of our conversation to begin attending groups regularly, as this will be expected of him in rehab as well. Physical Exam Psychiatric Orientation: alert, oriented x 3 and cooperative (superficially, though demonstrating impatience ) Apperance: appropriately dressed (casually, in long-sleeve t-shirt and sweat pants), + disheveled (short hair is unkempt) and appeared stated age Eye Contact: good eye contact Motor Behavior: steady gait and station and no abnormal motor movements (mildly restless) Speech: normal rate/rhythm/volume of speech Affect: + anxious affect (appearing restless) and + blunted affect Mood: + anxious mood ("just getting antsy"); no depressed mood ("I'm feeling pretty good") Thought Process: goal directed thought process and clear/coherent thought process Thought Content: reality based without delusions Suicidal Thoughts: denies suicidal thoughts and denies suicidal intent Homicidal Thoughts: denies homicidal thoughts Hallucinations: no auditory hallucinations and no visual hallucinations Cognition: attention grossly intact and language grossly intact Insight: + fair insight Judgement: + fair judgement Vital Signs (Past 24 Hours) Last Vital Signs Temp 36.5 C 03/14/19 06:33 Pulse 81 03/14/19 06:33 Resp 16 03/14/19 06:33 BP 116/76 03/14/19 06:33 Pulse Ox 99 03/10/19 06:47 Results & Data Current Inpatient Medications Current Inpatient Medications: Current Inpatient Medications Acetaminophen (Tylenol) 650 mg PO Q4H PRN PRN Reason: Headache or Minor Fever Stop: 04/09/19 10:00 Al Hydrox/Mg Hydrox/Simethicone (Maalox) 30 ml PO Q4H PRN PRN Reason: GI Upset Stop: 04/09/19 10:00 Bismuth Subsalicylate (Kaopectate) 15 ml PO PRN PRN PRN Reason: Loose Stool Stop: 04/09/19 10:00 Fluoxetine HCl (Prozac) 20 mg PO QAM DIANE Stop: 04/09/19 10:14 Last Admin: 03/13/19 09:21 Dose: 20 mg Documented by: Hydroxyzine HCl (Vistaril) 50 mg PO HSZ PRN PRN Reason: insomnia Stop: 04/09/19 10:22 Hydroxyzine HCl (Vistaril) 25 mg PO Q4H PRN PRN Reason: Anxiety Stop: 04/09/19 10:00 Magnesium Hydroxide (Milk Of Magnesia) 30 ml PO DAILY PRN PRN Reason: Constipation Stop: 04/09/19 10:00 Mirtazapine (Remeron) 30 mg PO HS DIANE Stop: 04/09/19 21:59 Last Admin: 03/13/19 21:06 Dose: 30 mg Documented by: Miscellaneous (Remove Nicoderm Patch) 1 ea N/A DAILY@0859 [facility] Stop: 04/10/19 08:58 Last Admin: 03/13/19 09:21 Dose: Not Given Documented by: Nicotine (Nicoderm Cq) 14 mg TD QAM [facility] Stop: 04/09/19 10:14 Last Admin: 03/13/19 09:22 Dose: Not Given Documented by: Nicotine Polacrilex (Nicorette 2mg) 1 piece MT PRN PRN PRN Reason: Nicotine Withdrawal Stop: 04/09/19 10:00 Last Admin: 03/13/19 21:08 Dose: 1 piece Documented by: Sodium Chloride (Anita Nasal) 1 - 2 sprays NA PRN PRN PRN Reason: Nasal Dryness/Congestion Stop: 04/09/19 10:00 Mental Health & Subst Abuse Tx Therapist Name of Therapist: None Preparation Center Coordinator Name of Preparation Center Coordinator: None
[2019-03-14] MEDS: FLUOXETINE HCL 20 MG CAP PO SCH (08:58)
[2019-03-14] MEDS: NICOTINE 14 MG/24 HR PATCH TD SCH (08:59)
[2019-03-14] MEDS: NICOTINE POLACRILEX 2 MG GUM MT PRN (12:55)
[2019-03-14] MEDS: MIRTAZAPINE TAB 15 MG TAB PO SCH (21:19)
[2019-03-15] MEDS: FLUOXETINE HCL 20 MG CAP PO SCH (09:47)
[2019-03-15] MEDS: NICOTINE 14 MG/24 HR PATCH TD SCH (09:48)
--- NOTE | 2019-03-15 14:18 | Psychiatric Progress Note ---
Date of Service March 15, 2019 Impression / Recommendations Impression This 33-year-old man has a complex history that includes chemical dependency, dating back to latency age, recurrent episodes of depression that appear to be closely linked to his abuse of, or withdrawal from, mood altering chemical substances, a history of a number of intentional suicide attempts by overdose, several psychiatric hospitalizations, multiple residential rehabilitation programs, and a history of multiple incarcerations largely pursuant to drugs. He tells us that he is having thoughts of overdosing on methamphetamine and heroin, and notes that, in the past, he has acted on these thoughts. However, it would seem that perhaps the patient's primary goal at this point is to complete detoxification, get clean, and be in a better position to assist his grandmother and his behaviorally disturbed 15-year-old daughter, which is the reason he returned to [facility] from [place] last summer. In the month prior to the admission the patient says that he has been smoking methamphetamine on a daily basis and quantities that he says are too much and too random to quantify. However, he claims to have achieved 3-1/2 years of abstinence while a resident in a residential chemical dependency rehabilitation program in [place], followed by a stent has an employee of the same rehabilitation program. Symptoms of methamphetamine withdrawal are improving - brief course of modafinil now discontinued. The goal will be to assist the patient through detoxification from methamphetamine, assessing patient for an underlying mood disorder, and referring to a residential rehabilitation progr for further rehab. Mirtazapine and fluoxetine was started on 03/10. Pt did sign an HERBERT for his grandmother, as well as the [facility]. We received word that the patient has been accepted at [facility], with anticipated discharge to their facility tomorrow afternoon. There is significant concern for relapse if patient is discharged home prior to transfer to rehab - and concern is increased due to history of suicidal ideation resulting from episodes of substance abuse. (1) Depression with suicidal ideation: 03/10/19 -Patient reports that he is depressed and has been experiencing thoughts of suicide within the context of the abuse of methamphetamine and shame associated with the fact that he has relapsed following a substantial period of abstinence. There is a strong family history reported by the patient of mood disorders, primarily depression, but also bipolar disorder. The patient describes recurrent depressive episodes as well as periods during which she is experiencing racing thoughts that, "so fast I cannot keep up with them." However, the patient's reports indicate that these mood symptoms occur exclusively within the context of his abuse of mood altering chemical substances. He reports that while abstinent from chemical substances during rehabilitation and employment in a rehabilitation center in [place] (more than 3 years) his mood symptoms resolved fairly quickly and he remained free of depression and anxiety during that period. -We will add Prozac 20 mg a day and mirtazapine 30 mg a day to the patient's medication regimen, both to assist with mood and to help the patient while he experiences the effects of methamphetamine cessation. 03/11 continue as above monitoring for potential s/e to medications 03/12 - attempting to engage pt and encouraging attending groups and socialize with peers, 03/13 - Continue as above - continuing strong encouragement for group participation - reminding patient that this is a component of desire for voluntary treatment - Inpatient D&A referral as below - Identify someone with whom to have a family meeting to discuss aftercare/discharge planning 03/14 - Continue current medication regimen - declining further adjustments at this time - Met with loan servicing representative from [facility] today - exploring inpatient D&A rehab options - Encourage family meeting 03/15 - Continue current medication regimen, patient reports stability with these medications at current doses - Pt accepted to [facility] for inpatient drug and alcohol rehabilitation - Patient continues to decline family meeting with grandmother (2) Methamphetamine abuse: 03/10/19 -The patient is currently showing early symptoms of methamphetamine withdrawal. I have added a brief course of modafinil 100 mg daily to assist the patient over the next 72 hours. The plan is not to continue this medication, particularly given the patient's history of chemical substance misuse. -He reports that during withdrawal from methamphetamines he typically sleeps very poorly and notes that he has only slept "may be for 5 hours" in the past several days. I have added mirtazapine 30 mg daily, both for depression and for insomnia, at least while he continues to experience the effects of methamphetamine cessation. We have also added Prozac 20 mg a day. He notes that this medication has helped manage his anxiety during withdrawal and subsequent to withdrawal. 03/11/19 - referral to in substance rehab 03/13 - Pt verbalizing desire for inpatient D&A rehab - Signed [facility] for [facility] to begin referral process 03/15 - Pt accepted to [facility] inpatient D&A rehab - to be picked up for transfer tomorrow afternoon Inventory Assets Strengths: Motivated to recovery. 3-1/2 years of abstinence from drugs (recently). Supportive grandmother. Reports a positive work history. Needs: Sustained abstinence from drugs of abuse. Resolution of suicidal thoughts. Improved daily structure. Risk Factors Assessment Male: Yes : Yes Do You Have Access To A Gun?: No Health Problems: No Mental Health Diagnoses: Yes Substance Use Disorders: Yes Previous Attempt: Yes Previous Attempt; Highly Lethal: No Previous Attempt; Planned: No Previous Attempt; Didn't Tell Anyone: Yes Previous Psychiatric Hospitalization: Yes Hopelessness: No Smoker: Yes Protective Factors Assessment Shinto Beliefs: No : Yes (Technically, the patient is , but has been from his for at least 4 years.) Responsible for Young Children: Yes Employed: No (Seeking employment) Stable Relationships: Yes Supportive Family: Yes Good Rapport with Provider: No Absence of Any Risk Factors Above: No Interval History Identifying Information GAIL RODARTE is a 33-year-old M who currently lives locally with his grandmother and his 16-year-old daughter. He has an extensive history of drug abuse, including, but not limited to, methamphetamine and heroin, as well as a history of depression and a number of suicide attempts by overdose. He was admitted on 03/10/19 06:38 on a 201 voluntary agreement because of suicidal ideation with a plan to overdose on methamphetamine and heroin. Chief Complaint "I'm fine, just ready to go." Review of Systems Notes Constitutional: denied Cardiovascular: denied Respiratory: denied Gastrointestinal: denied Neurological: denied Psychiatric: denies symptoms other than stated above Total of at least 10 systems reviewed, pertinent positives as above and in HPI. Sleep Information Total Hours of Sleep: 9 Sleep Comments: pt on q-15 minute checks Meal Information Percent Meal Consumed - Breakfast: 0 Percent Meal Consumed - Lunch: 100 Percent Meal Consumed - Dinner: 100 Nutrition Comment: pt. does not typically eat breakfast. fluids provided Subjective Subjective Patient was seen & assessed and interval progress reviewed with treatment team. Staff reports the patient continues to isolate in his room, declining to attend most groups programming. Patient has been reportedly requesting discharge, requesting to go home and follow-up with rehab on an outpatient basis. Patient was seen today to assess progress since admission. He states that he is "okay" today. Patient is aware that multiple referrals have been sent for available beds at inpatient drug and alcohol rehab programs. Patient states that he no longer feels that inpatient psychiatric treatment is beneficial, and is requesting to move on to substance abuse treatment at this time. Patient admits that he continues to be restless, no longer desiring to be on our unit. Patient states that he has been cooperative with the referral process, but is not interested in remaining on our unit if this process should take considerable time. Patient denies suicidal ideation, and states that his medications continue to be effective. He denies any concerns related to mood or anxiety. Patient denies other needs or concerns presently. Physical Exam Psychiatric Orientation: alert, oriented x 3 and cooperative (Superficially) Apperance: appropriately dressed, + disheveled and appeared stated age Eye Contact: good eye contact Motor Behavior: no abnormal motor movements (Observed while laying in bed) Speech: normal rate/rhythm/volume of speech Affect: euthymic affect Mood: no depressed mood ("I am okay") Thought Process: goal directed thought process, clear/coherent thought process and thought association intact Thought Content: reality based without delusions; no hopelessness and no worthlessness Suicidal Thoughts: denies suicidal thoughts and denies suicidal intent Homicidal Thoughts: denies homicidal thoughts Hallucinations: no auditory hallucinations and no visual hallucinations Cognition: attention grossly intact and language grossly intact Insight: + fair insight Judgement: + fair judgement Vital Signs (Past 24 Hours) Last Vital Signs Temp 36.5 C 03/15/19 06:54 Pulse 80 03/15/19 06:56 Resp 18 03/15/19 06:54 BP 117/77 03/15/19 06:56 Pulse Ox 99 03/10/19 06:47 Results & Data Current Inpatient Medications Current Inpatient Medications: Current Inpatient Medications Acetaminophen (Tylenol) 650 mg PO Q4H PRN PRN Reason: Headache or Minor Fever Stop: 04/09/19 10:00 Al Hydrox/Mg Hydrox/Simethicone (Maalox) 30 ml PO Q4H PRN PRN Reason: GI Upset Stop: 04/09/19 10:00 Bismuth Subsalicylate (Kaopectate) 15 ml PO PRN PRN PRN Reason: Loose Stool Stop: 04/09/19 10:00 Fluoxetine HCl (Prozac) 20 mg PO QAM DIANE Stop: 04/09/19 10:14 Last Admin: 03/15/19 09:47 Dose: 20 mg Documented by: Hydroxyzine HCl (Vistaril) 50 mg PO HSZ PRN PRN Reason: insomnia Stop: 04/09/19 10:22 Hydroxyzine HCl (Vistaril) 25 mg PO Q4H PRN PRN Reason: Anxiety Stop: 04/09/19 10:00 Magnesium Hydroxide (Milk Of Magnesia) 30 ml PO DAILY PRN PRN Reason: Constipation Stop: 04/09/19 10:00 Mirtazapine (Remeron) 30 mg PO HS DIANE Stop: 04/09/19 21:59 Last Admin: 03/14/19 21:19 Dose: 30 mg Documented by: Miscellaneous (Remove Nicoderm Patch) 1 ea N/A DAILY@[id number] [facility] Stop: 04/10/19 08:58 Last Admin: 03/15/19 09:47 Dose: Not Given Documented by: Nicotine (Nicoderm Cq) 14 mg TD QAM [facility] Stop: 04/09/19 10:14 Last Admin: 03/15/19 09:48 Dose: Not Given Documented by: Nicotine Polacrilex (Nicorette 2mg) 1 piece MT PRN PRN PRN Reason: Nicotine Withdrawal Stop: 04/09/19 10:00 Last Admin: 03/14/19 12:55 Dose: 1 piece Documented by: Sodium Chloride (Whatcom Nasal) 1 - 2 sprays NA PRN PRN PRN Reason: Nasal Dryness/Congestion Stop: 04/09/19 10:00 Mental Health & Subst Abuse Tx Psychiatrist Name of Psychiatrist: To be addressed at [facility]. Therapist Name of Therapist: To be addressed at [facility]. Sql Data Architect Name of Sql Data Architect: [facility] Phone Number for Sql Data Architect: [phone] Time of Appointment with Sql Data Architect: Will follow up with you after discharge. Case Management Appointment Comment: [address], [place] [address] Post Discharge Appointments Primary Care Physician Name Of Family Doctor: Declined. Other #1: Name of Aftercare Appointment: [facility] Phone Number of Aftercare Appointment: Contact Information Discharge Discharge Address: [address] [place] [address]
[2019-03-15 15:06] LABS: Amphetamine Urine, Confirm 15900 NG/ML (CUTOFF=250); Marijuana Quant, GCMS Urine 141 NG/ML (CUTOFF=5); Methamphetamine, Ur Confirm >125000 NG/ML (CUTOFF=250)
[2019-03-15] MEDS: MIRTAZAPINE TAB 15 MG TAB PO SCH (20:58)
[2019-03-15] MEDS: NICOTINE POLACRILEX 2 MG GUM MT PRN (21:01)
[2019-03-16] MEDS: NICOTINE 14 MG/24 HR PATCH TD SCH (08:46)
[2019-03-16] MEDS: FLUOXETINE HCL 20 MG CAP PO SCH (08:46)
--- NOTE | 2019-03-16 09:54 | Discharge Summary ---
Date of Service March 16, 2019 History of Present Illness The patient is a 33-year-old man with an extensive history of chemical dependency, as well as a history of recurrent major depressive episodes and multiple suicide attempts. Patient reports that he first began abusing marijuana at the age of 9 or 10, and over the years has abused multiple chemical substances including methamphetamine, heroin, cocaine, opioid-based pain medications, sedative medications, and others. As noted, he also reports recurring depression, but, based on his history, his mood disorder symptoms do not seem to occur independent of his abuse of mood altering chemical substances. The patient also describes racing thoughts that occur when he is abusing methamphetamine, but otherwise he does not describe a history consistent with the diagnosis of bipolar disorderalthough he notes that there is a family history of bipolar disorder, including his mother. An additional part of the patient's story has a long history of multiple incarcerations. The patient estimates that he has been imprisoned on at least 10-12 occasions, and says with some degree of bravado that now when he arrives at the [facility] "It's like I am walking into '[employer]'" [a reference to a television show that featured an eponymous bar where "everyone knows your name"]. Many of the patient's arrests have been related to disorderly conduct, and other drug related charges. Further, there have been several psychiatric hospitalizations. He was last admitted to the behavioral health unit at [facility] on 01/24/2013 following a deliberate overdose of drugs, and the patient says that on a number of other occasions he has deliberately "put extra heroin or meth in the syringe with the idea of killing myself." However, he says that usually he simply "wakes up" the next day. The patient reports that he has not used cocaine in many years and has also not used heroin or other opioids for at least 2 years. He estimates that he has been in 7 or 8 residential drug rehabilitation programs over the years. Most recently, he had entered a rehabilitation program under court order for 90 days in the [facility], but voluntarily agreed to stay 180 days because of the extensive nature of his substance use and a strong motivation to achieve and maintain abstinence. 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 He ended up staying at the residential program for over 3 years, during which he indicates that he was clean, sober, free of all drugs, and also free of psychiatric symptoms. However, he learned that his 15-year-old daughter, a girl who lives with the patient's former girlfriend and [place], [place], was having major be havioral and psychiatric problems, and there was a crisis because the daughter's mother had decided to put the child in foster care. The patient's grandmother intervened, offered to provide the patient's daughter a home, but asked the patient to return to [facility] in order to assist her in managing the child. The patient reports that he returned to [facility] from [place] last October (2018) and, fairly quickly, relapsed on methamphetaminea circumstance that he attributes to the fact that he "knows everybody" and "people Offering me drugs, so finally I gave him started using again." The patient notes that he feels very guilty that because of his drug use he has not been a particularly good father and has not been able to help his grandmother and his daughter to the degree that he would like, although he also notes that recently the patient's daughter's behavior has improved somewhat. (He describes behaviors and the daughter such as throwing and breaking objects, self cutting, screaming profanities, and making threats to the family.) Following his relapse with methamphetamine last summer upon returning to [facility] ([place]) he again stopped using, but in the past month has been smoking methamphetamine, "so much I cannot keep track of it" on a daily basis. The patient indicates that he had started out a number of years ago with a large qu antity of money 1 and a lottery, but has spent down most of that money, mostly on drugs. Physical Exam Vital Signs (Past 24 Hours) Last Vital Signs Temp 36.9 C 03/16/19 06:00 Pulse 109 H 03/16/19 06:31 Resp 17 03/16/19 06:00 BP 144/99 H 03/16/19 06:31 Pulse Ox 99 03/10/19 06:47 Principal Diagnosis Depression not otherwise specified (MDD versus substance-induced depression) Methamphetamine use disorder Cannabis use disorder Rule out MDMA use History of heroin use Psychiatric Data The patient was hospitalized for 6 days. He reported a complex history of chemical dependency, recurrent depression that appeared to be closely linked to his abuse of, or withdrawal from, mood altering chemicals substances, multiple suicide attempts by overdose, multiple psychiatric hospitalizations and residential rehabilitation programs, and multiple incarcerations largely pursuant to drugs. He was admitted due to suicidal thoughts to overdose on methamphetamine and heroin, and reported that in the past, he has acted on these thoughts. He stated he wanted to go to inpatient rehab to address his substance abuse, so that he could be in a better position to assist his grandmother in raising his daughter. He presented with methamphetamine withdrawal and depressive symptoms. He was started on fluoxetine and mirtazapine, and a 3-day course of modafinil to assist with lethargy related to methamphetamine withdrawal. He spent much of his for several days in the hospital in bed, declining groups and most meals. His suicidal thoughts resolved, and due to lack of insurance, he was referred to the [facility] for financial assistance for inpatient substance abuse treatment. He met with a claims service representative and referrals were made to rehab, was accepted, and plans were made for a facility to facility transfer to minimize his risk of relapse. He declined recommendations for a family meeting with his grandmother, but had visits from a female friend. His UDS on admission was positive for amphetamine/methamphetamine, THC, and MDMA. Confirmatory tests show methamphetamine > 125,000 and THC 141. MDMA confirmatory results still pending. Day of Discharge Assessment Staff report the patient has been consistently denying suicidal thoughts, and continues to state willingness for inpatient rehab. He has been sleeping well and appetite has improved, eating all 3 meals yesterday. He was out of his room more yesterday, and had a visit with a female friend. He has been attending more groups, and participating appropriately. On my assessment, he reports mood has improved, SI has resolved, and he feels ready to go to rehab. He denies side effects to medications, and apologizes for "getting antsy this last couple of days." He has been to rehab before, and is thinking about what he will do when he completes the program, possibly going to a alf house, or returning to [place]. He states he was in the [facility] and was involved in a substance abuse treatment program there that was very helpful, has good supports there, and was able to stay sober, but has struggled with that since returning to [facility]. He has talked to his grandmother about it, and says she is supportive. He would like his 16-year-old daughter to accompany him to [place], but so far, she has not wanted to do that. He feels ready for discharge and denies acute safety concerns. Transition of Care Transition Of Care Record: was reviewed with the patient Advance Directives Advance Directives Information Provided: Yes Advance Directives: No Mental Health Advance Directive: No Advance Directives on File: No Living Will: No Power of Surfacing Technician: No Advance Directives Reason:: Declines as Mental Health Visit. Risk Factors Assessment Risk factors were mitigated by admission to the inpatient unit, use of medicati ons to target mood symptoms, substance withdrawal, and sleep, psychoeducation about his diagnoses and the recommended treatment, referral to the [facility] for assistance in getting into inpatient substance abuse treatment, offering a family meeting which he declined, participation in groups and therapy, working on healthy coping skills and a discharge safety plan, and direct transfer to inpatient rehab to address substance abuse. He is reporting improved mood and resolution of suicidal thoughts, is compliant with medications, and indicating willingness to follow through with inpatient rehab to achieve sobriety. He is no longer at acute risk of harm to himself, so can be transferred to inpatient rehab for substance abuse treatment. Male: Yes : Yes Do You Have Access To A Gun?: No Health Problems: No Mental Health Diagnoses: Yes Substance Use Disorders: Yes Previous Attempt: Yes Previous Attempt; Highly Lethal: No Previous Attempt; Planned: No Previous Attempt; Didn't Tell Anyone: Yes Family History of Suicide: No Previous Psychiatric Hospitalization: Yes Hopelessness: No Smoker: Yes Protective Factors Assessment Confucianist Beliefs: No : Yes (Technically, the patient is , but has been from his for at least 4 years.) Responsible for Young Children: Yes Employed: No (Seeking employment) Stable Relationships: Yes Supportive Family: Yes Good Rapport with Provider: No Absence of Any Risk Factors Above: No Tobacco Cessation at Discharge Tobacco Cessation Medication Prescribed at Discharge: Offered & Prescribed (Prescription for nicotine patch issued, patient will follow-up at inpatient rehab for ongoing substance abuse treatment.) Total Time Total Time Spent: Greater Than 30 Minutes Total Time Includes: Examination of the patient, Discharge Planning and Medication Reconciliation Discharge Data Lab Results 03/10/19 03/10/19 03/10/19 00:05 00:05 00:05 WBC 7.58 RBC 5.33 Hgb 17.5 Hct 48.1 MCV 90.2 MCH 32.8 MCHC 36.4 H RDW Std Deviation 40.1 RDW Coeff of Gita 12.1 Plt Count 243 MPV 9.3 Immature Gran % (Auto) 0.1 Neut % (Auto) 68.5 Lymph % (Auto) 19.3 [place] % (Auto) 7.7 Eos % (Auto) 3.7 Baso % (Auto) 0.7 Immature Gran # (Auto) 0.01 Neut # (Auto) 5.20 Lymph # (Auto) 1.46 [place] # (Auto) 0.58 Eos # (Auto) 0.28 Baso # (Auto) 0.05 Sodium 140 Potassium 3.2 L Chloride 102 Carbon Dioxide 29 Anion Gap 8.0 BUN 20 H Creatinine 1.37 Est Cr Clr Drug Dosing 73.7 Est GFR ( Amer) 76.9 Est GFR (Non-Af Amer) 66.3 BUN/Creatinine Ratio 14.8 Glucose 99 Calcium 9.4 Total Bilirubin 1.1 H AST 14 L ALT 17 Alkaline Phosphatase 67 Total Protein 8.1 Albumin 4.3 Globulin 3.8 Albumin/Globulin Ratio 1.1 TSH 0.998 Urine Color Urine Appearance Urine pH Ur Specific [place] Urine Protein Urine Glucose (UA) Urine Ketones Urine Blood Urine Nitrite Urine Bilirubin Urine Urobilinogen Ur Leukocyte Esterase Urine WBC (Auto) Urine RBC (Auto) U Hyaline Cast (Auto) U Epithel Cells (Auto) Urine Bacteria (Auto) Urine Crystals Calcium Oxalate Crystal Nasal Screen MRSA (PCR) Salicylates < 1.7 L Urine Opiates Screen Ur Methadone, Qual Acetaminophen < 2 L Urine Barbiturates Ur Phencyclidine (PCP) U Amphetamines Confirm U Amphetamin/Meth Scrn U Methamphetamin Confrm MDMA (Ecstasy) Screen U MDMA (Ecstasy), Quant U Benzodiazepines Scrn Ur Cocaine Metabolite U Marijuana (THC) Screen U Marijuana THC Carboxy Ethyl Alcohol mg/dL 03/10/19 03/10/19 03/10/19 00:06 00:10 00:10 WBC RBC Hgb Hct MCV MCH MCHC RDW Std Deviation RDW Coeff of Gita Plt Count MPV Immature Gran % (Auto) Neut % (Auto) Lymph % (Auto) [place] % (Auto) Eos % (Auto) Baso % (Auto) Immature Gran # (Auto) Neut # (Auto) Lymph # (Auto) [place] # (Auto) Eos # (Auto) Baso # (Auto) Sodium Potassium Chloride Carbon Dioxide Anion Gap BUN Creatinine Est Cr Clr Drug Dosing Est GFR ( Amer) Est GFR (Non-Af Amer) BUN/Creatinine Ratio Glucose Calcium Total Bilirubin AST ALT Alkaline Phosphatase Total Protein Albumin Globulin Albumin/Globulin Ratio TSH Urine Color Dark Yellow Urine Appearance Clear Urine pH 5.0 Ur Specific [place] 1.033 H Urine Protein Trace H Urine Glucose (UA) Negative Urine Ketones 1+ H Urine Blood Negative Urine Nitrite Negative Urine Bilirubin Negative Urine Urobilinogen Negative Ur Leukocyte Esterase Negative Urine WBC (Auto) 1-5 Urine RBC (Auto) 0-4 U Hyaline Cast (Auto) 1-5 U Epithel Cells (Auto) 5-10 H Urine Bacteria (Auto) Negative Urine Crystals Not Reportable Calcium Oxalate Crystal Present A Nasal Screen MRSA (PCR) Salicylates Urine Opiates Screen Neg Ur Methadone, Qual Neg Acetaminophen Urine Barbiturates Neg Ur Phencyclidine (PCP) Neg U Amphetamines Confirm U Amphetamin/Meth Scrn Pos H U Methamphetamin Confrm MDMA (Ecstasy) Screen Pos H U MDMA (Ecstasy), Quant U Benzodiazepines Scrn Neg Ur Cocaine Metabolite Neg U Marijuana (THC) Screen Pos H U Marijuana THC Carboxy Ethyl Alcohol mg/dL < 3.0 03/10/19 03/10/19 03/10/19 00:10 00:10 05:41 WBC RBC Hgb Hct MCV MCH MCHC RDW Std Deviation RDW Coeff of Gita Plt Count MPV Immature Gran % (Auto) Neut % (Auto) Lymph % (Auto) [place] % (Auto) Eos % (Auto) Baso % (Auto) Immature Gran # (Auto) Neut # (Auto) Lymph # (Auto) [place] # (Auto) Eos # (Auto) Baso # (Auto) Sodium Potassium Chloride Carbon Dioxide Anion Gap BUN Creatinine Est Cr Clr Drug Dosing Est GFR ( Amer) Est GFR (Non-Af Amer) BUN/Creatinine Ratio Glucose Calcium Total Bilirubin AST ALT Alkaline Phosphatase Total Protein Albumin Globulin Albumin/Globulin Ratio TSH Urine Color Urine Appearance Urine pH Ur Specific [place] Urine Protein Urine Glucose (UA) Urine Ketones Urine Blood Urine Nitrite Urine Bilirubin Urine Urobilinogen Ur Leukocyte Esterase Urine WBC (Auto) Urine RBC (Auto) U Hyaline Cast (Auto) U Epithel Cells (Auto) Urine Bacteria (Auto) Urine Crystals Calcium Oxalate Crystal Nasal Screen MRSA (PCR) Negative Salicylates Urine Opiates Screen Ur Methadone, Qual Acetaminophen Urine Barbiturates Ur Phencyclidine (PCP) U Amphetamines Confirm 69145 A U Amphetamin/Meth Scrn U Methamphetamin Confrm >364200 A MDMA (Ecstasy) Screen U MDMA (Ecstasy), Quant REPORT U Benzodiazepines Scrn Ur Cocaine Metabolite U Marijuana (THC) Screen U Marijuana THC Carboxy 141 A Ethyl Alcohol mg/dL 03/11/19 07:06 WBC RBC Hgb Hct MCV MCH MCHC RDW Std Deviation RDW Coeff of Gita Plt Count MPV Immature Gran % (Auto) Neut % (Auto) Lymph % (Auto) [place] % (Auto) Eos % (Auto) Baso % (Auto) Immature Gran # (Auto) Neut # (Auto) Lymph # (Auto) [place] # (Auto) Eos # (Auto) Baso # (Auto) Sodium 143 Potassium 3.3 L Chloride 109 H Carbon Dioxide 28 Anion Gap 6.0 BUN 14 Creatinine 0.96 D Est Cr Clr Drug Dosing 103.9 Est GFR ( Amer) 118.2 Est GFR (Non-Af Amer) 102.0 BUN/Creatinine Ratio 15.0 Glucose 111 H Calcium 8.6 Total Bilirubin 0.4 D AST 9 L ALT 13 Alkaline Phosphatase 51 Total Protein 6.0 L D Albumin 3.1 L Globulin 2.9 Albumin/Globulin Ratio 1.1 TSH Urine Color Urine Appearance Urine pH Ur Specific [place] Urine Protein Urine Glucose (UA) Urine Ketones Urine Blood Urine Nitrite Urine Bilirubin Urine Urobilinogen Ur Leukocyte Esterase Urine WBC (Auto) Urine RBC (Auto) U Hyaline Cast (Auto) U Epithel Cells (Auto) Urine Bacteria (Auto) Urine Crystals Calcium Oxalate Crystal Nasal Screen MRSA (PCR) Salicylates Urine Opiates Screen Ur Methadone, Qual Acetaminophen Urine Barbiturates Ur Phencyclidine (PCP) U Amphetamines Confirm U Amphetamin/Meth Scrn U Methamphetamin Confrm MDMA (Ecstasy) Screen U MDMA (Ecstasy), Quant U Benzodiazepines Scrn Ur Cocaine Metabolite U Marijuana (THC) Screen U Marijuana THC Carboxy Ethyl Alcohol mg/dL Hospital Course (1) Depression with suicidal ideation: 03/10/19 -Patient reports that he is depressed and has been experiencing thoughts of suicide within the context of the abuse of methamphetamine and shame associated with the fact that he has relapsed following a substantial period of abstinence. There is a strong family history reported by the patient of mood disorders, primarily depression, but also bipolar disorder. The patient describes recurrent depressive episodes as well as periods during which she is experiencing racing thoughts that, "so fast I cannot keep up with them." However, the patient's reports indicate that these mood symptoms occur exclusively within the context of his abuse of mood altering chemical substances . He reports that while abstinent from chemical substances during rehabilitation and employment in a rehabilitation center in [place] (more than 3 years) his mood symptoms resolved fairly quickly and he remained free of depression and anxiety during that period. -We will add Prozac 20 mg a day and mirtazapine 30 mg a day to the patient's medication regimen, both to assist with mood and to help the patient while he experiences the effects of methamphetamine cessation. 03/11 continue as above monitoring for potential s/e to medications 03/12 - attempting to engage pt and encouraging attending groups and socialize with peers, 03/13 - Continue as above - continuing strong encouragement for group participation - reminding patient that this is a component of desire for voluntary treatment - Inpatient D&A referral as below - Identify someone with whom to have a family meeting to discuss aftercare/discharge planning 03/14 - Continue current medication regimen - declining further adjustments at this time - Met with claims service representative from [facility] today - exploring inpatient D&A rehab options - Encourage family meeting 03/15 - Continue current medication regimen, patient reports stability with these medications at current doses - Pt accepted to [facility] for inpatient drug and alcohol rehabilitation - Patient continues to decline family meeting with grandmother 03/16 -Prescriptions issued for fluoxetine 20 mg daily, mirtazapine 30 mg at bedtime, and nicotine patch. -Patient being transferred directly to inpatient rehab as below. -He declined a family meeting with his grandmother and did not allow staff to contact his sheriffs officer. (2) Methamphetamine abuse: 03/10/19 -The patient is currently showing early symptoms of methamphetamine withdrawal. I have added a brief course of modafinil 100 mg daily to assist the patient over the next 72 hours. The plan is not to continue this medication, particularly given the patient's history of chemical substance misuse. -He reports that during withdrawal from methamphetamines he typically sleeps very poorly and notes that he has only slept "may be for 5 hours" in the past several days. I have added mirtazapine 30 mg daily, both for depression and for insomnia, at least while he continues to experience the effects of methamphetamine cessation. We have also added Prozac 20 mg a day. He notes that this medication has helped manage his anxiety during withdrawal and subsequent to withdrawal. 03/11/19 - referral to in substance rehab 03/13 - Pt verbalizing desire for inpatient D&A rehab - Signed HERBERT for the [facility] to begin referral process 03/15 - Pt accepted to [facility] inpatient D&A rehab - to be picked up for transfer tomorrow afternoon 03/16 - Patient has stable psychiatrically and is being transferred directly to inpatient rehab to minimize the risk of relapse. (3) Polysubstance (excluding opioids) dependence: History of IV heroin, cannabis, vaping, alcohol, cocaine, prescription medications, huffing, and has reported using "all drugs" in the past. As a result of his substance abuse, the patient has developed depressive symptoms, suicidal ideation, multiple suicide attempts, multiple ER visits, hospitalizations, and medical complications, legal problems including arrest, DUI, child endangerment, incarceration, and probation, and has been unable to hold a job or to raise his teenage daughter. (4) Cannabis abuse: See above Mental Health & Subst Abuse Tx Psychiatrist Name of Psychiatrist: To be addressed at [facility]. Therapist Name of Therapist: To be addressed at [facility]. Therapist Phys Name of Therapist Phys: [facility] Phone Number for Therapist Phys: [phone] Time of Appointment with Therapist Phys: Will follow up with you after discharge. Case Management Appointment Comment: [address], [place] [address] Therapist Phys Release of Information: Obtained, Reviewed and Signed Post Discharge Appointments Primary Care Physician Name Of Family Doctor: Declined. Smoking Cessation Counseling Tobacco Cessation Medication Prescribed at Discharge: Offered & Prescribed (Prescription for nicotine patch issued, patient will follow-up at inpatient rehab for ongoing substance abuse treatment.) Contact Information Discharge Discharge Address: [facility] [address] [place] [address] Discharge Plan Discharge Items Patient Disposition: Drug & Alcohol Rehab Reason For Visit: DEPRESSION Discharge Diagnosis: Depression Methamphetamine use disorder Cannabis use disorder Activity: Per Instructions section Non-emergency contact: Psychiatrist, Therapist and Tonal Regulator Call non-emergency contact if: you have any medication questions and your symptoms worsen Follow-up/Referrals: PCP,NO [Primary Care Provider] - Diet: Regular Addtl Attending Provider Instructions: SPECIAL CARE INSTRUCTIONS: 1. You are being transferred directly to inpatient rehab for substance abuse treatment. You should follow-up with outpatient substance abuse treatment once you have completed the program. 2. Take your medication only as prescribed. Medication should not be changed or stopped without the approval of your doctor. In the event of worsening symptoms or concerns about side effects, contact your doctor immediately. 3. Utilize new healthy coping skills, anger management skills, and stress management skills learned during your hospitalization. Journal feelings and process them with a support person. Identify stressors or situations that may result in relapse, deterioration or inappropriate behaviors and develop a plan to deal with those issues. 4. If your coping skills are ineffective and you are in crisis, contact your outpatient providers for direction. If unable to reach your providers, please call the CAN HELP LINE AT or go to the closest Emergency Room. 5. You should not use alcohol or un-prescribed drugs. 6. You have been provided with the Mental Health Advance Directives Pamphlet for your review. AFTERCARE APPOINTMENTS: * Please call your insurance company prior to your scheduled appointment to confirm your aftercare providers are covered. Take your insurance information to your appointments. WHO TO CALL AND WHEN: Medical Emergencies: For questions or emergencies related to your hospital stay, please contact the Inpatient Behavioral Health Unit at [phone]. A vice president of procurement is on-call 16/11 for the Behavioral Health Unit for emergencies At any time you feel your situation is an emergency, you may also call 911 immediately. Your Doctors Instructions noted above were prepared by provider Lucy Galvan MD. Pending Studies at Discharge: Yes (UDS positive for MDMA, confirmatory test results pending) Stand-Alone Forms: My [facility], Suicide Prevention Resources Skilled Items Patient informed of condition?: Yes DNR: No Discharge Level of Care: Acute rehab Communicable Disease: No Discharge Prognosis: Stable Lines: None Urinary Catheter: No Medications and DC Order Prescriptions: New fluoxetine 20 mg Capsule 20 mg PO QAM Qty: 30 RF: 0 nicotine 7 mg/24 hr Patch 24 Hour 14 mg transdermal QAM Qty: 7 RF: 0 mirtazapine 30 mg tablet 30 mg PO HS Qty: 30 RF: 0 Continued epinephrine [EpiPen] 0.3 mg/0.3 mL Auto-Injector 0.3 mg IM DIRECTED PRN (Reason: Allergic Reaction) RF: 0 Discharge Orders: Discharge Order (Routine); Ordered 03/16/19 Ordered By: Lucy Galvan Admission Data Admit Date/Time: 03/10/19 06:38 Attending Provider: Lucy Galvan Admit Provider: Lucy Galvan Primary Care Provider: PCP,NO Other Interventions: PSY Interdisciplinary Discharge Planning Last Done: 03/16/19 09:20 Coding Level of Care Code 66665 D/C day mgmt > 30 min Diagnoses Depression with suicidal ideation F32.9; R45.851 Methamphetamine abuse F15.10 Polysubstance (excluding opioids) dependence F19.20 Cannabis abuse F12.10
== END 2019-03-16 12:26 | disposition alcohol treatment (31) | DRG 881 ==
LOC: ED 23:38 → SUATTDRO 03-10 06:38 → 3S 03-10 06:38